=== PATIENT | male | born 1990 | race Caucasian/White ===

== ENCOUNTER 2022-09-17 09:39 | Emergency (ER) | payer OTHER ==
[2022-09-17 10:00] VITALS: BP 133/99
--- NOTE | 2022-09-17 11:50 | ED Physician Documentation ---
History of Present Illness - Stated complaint Stated Complaint: PIÑA,EYE PX,PINK EYE - Chief complaint Chief Complaint: Heent - Additonal information Additional information: 32-year-old male presents emergency department for evaluation of bilateral conjunctival injection as well as some matting and crusting on the left eye this AM. Patient reports that he does wear contacts but has not done so for many months. 2 nights ago he put in a brand-new pair and yesterday morning when he woke up he had some matting on his eyes as well as some conjunctival injection. He removed to the contacts but the injection and redness has not improved thus he presents here. Denies eye pain or vision changes Review of Systems Eyes: reports: Discharge, Irritation. denies: Loss of vision, Decreased vision, Photophobia PD PAST MEDICAL HISTORY - Present Medications Home Medications: Ambulatory Orders Medication Instructions Recorded Confirmed Polymyxin B/Trimeth Ophth Drop 1 drops EACHEYE Q3H 7 Days #1 each 09/17/22 [Polytrim Ophth Drops] - Allergies Allergies/Adverse Reactions: Allergies Allergy/AdvReac Type Severity Reaction Status Date / Time No Known Drug Allergies Allergy Verified 09/17/22 09:48 PD ED PE EXPANDED - Eyes Eyes: Other (Bilateral conjunctival injection. Negative fluorescein stain bilaterally. Clear anterior chambers. PERRLA. EOMI intact without pain. No upper or lower eyelid swelling/erythema. No hordeolum or stye noted.) Results - Vitals Vitals: Vital Signs - 24 hr 09/17/22 09:49 Temperature 36.8 C Heart Rate 80 Respiratory 20 Rate Blood Pressure 133/99 H O2 Saturation 99 Oxygen O2 Source Room air PD Medical Decision Making - ED course Complexity details: d/w patient ED course: 32-year-old male presents emergency department for evaluation of bilateral conjunctival injection as well as drainage that began yesterday morning after he had placed contact lenses in the previous night. Contact lenses were removed. On exam there is no evidence of a corneal abrasion or ulceration. He has clear anterior chambers extraocular movements are preserved. Clinically he presents as having a mild bilateral conjunctivitis. Patient will be started on Polytrim. Discussed with him routine care as well as emergent return precautions. Advised against using contact lenses moving forward for at least 2 to 3 weeks until full resolution. Departure - Departure Disposition: 01 Home, Self Care Clinical Impression: Bilateral conjunctivitis Qualifiers: Conjunctivitis type: acute Acute conjunctivitis type: unspecified Qualified Code(s): H10.33 - Unspecified acute conjunctivitis, bilateral Condition: Stable Record reviewed to determine appropriate education?: Yes Prescriptions: Polymyxin B/Trimeth Ophth Drop [Polytrim Ophth Drops] 1 drops EACHEYE Q3H 7 Days #1 each Comments: Jay you have developed a condition called conjunctivitis which is infection and inflammation of the external layer of skin cells in your eye. This is probably due to the contact lens use 2 nights ago. Please fill the prescription for the Polytrim drops. Place 1 drop in each eye every 3-4 hours for the next week. I also recommend a warm compress over each eye for 10 minutes 2-3 times a day. In general with the antibiotic drops I would expect last erythema, drainage over the next 24 to 48 hours. If not markedly improving then please return to the ER. You are advised to avoid any use of contact lenses for at least several weeks until this is fully resolved. If you choose to wear contact lenses again please use a brand new pair. In addition its important you discuss this ED visit with your insurance case manager as soon as you are able.
== END 2022-09-17 12:02 | disposition home or self-care (01) ==
LOC: ED 09:39
DX: H10.33 Unspecified acute conjunctivitis, bilateral (principal)
CPT/HCPCS: 99282; 99283